=== PATIENT | female | born 1995 | race Caucasian/White ===

== ENCOUNTER 2023-10-22 22:35 | Emergency (ER) | payer MEDICAID ==
[~2023-10-22] VITALS: Ht 172.7 cm; Wt 98.0 kg
[2023-10-22 23:37] VITALS: BP 117/77; PULSE 88; RESP 18; TEMP 97.5; O2SAT 98
[2023-10-23] MEDS ORDERED: OXYM30SP26 BOTHNSTRLS (00:23)
[2023-10-23] MEDS ORDERED: ACET-2708 MT (00:23)
== END 2023-10-23 01:29 | disposition home or self-care (01) ==
LOC: ER 22:35
DX: R04.0 Epistaxis (principal); R51.9 Headache, unspecified
CPT/HCPCS: 99283